=== PATIENT | male | born 1995 ===

== ENCOUNTER 2023-03-16 11:20 | Emergency (ER) | payer OTHER, SELFPAY ==
[2023-03-16 11:47] VITALS: BP 153/64; PULSE 74; RESP 16; TEMP 37.2; O2SAT 100
[2023-03-16 11:50] VITALS: BP 153/64; PULSE 74; RESP 16; TEMP 37.2; O2SAT 100
--- NOTE | 2023-03-16 12:07 | ED.SKABFB ---
HPI - Skin/Abscess/Foreign Bdy General Chief complaint: Skin/Abscess/Foreign Body Stated complaint: skin irritaion Time Seen by Provider: 03/16/23 12:07 Source: patient, RN notes reviewed and old records reviewed Mode of arrival: ambulatory Limitations: no limitations History of Present Illness HPI narrative: 27 year old male presents to [facility] care with complaints of red itchy bites to bilateral inner upper arms which he noted today and 2 small areas o left lower leg. Patient reports that he has been itching for the past few days in those areas and then noted rash areas today. Patient reports that he has just returned from [place] from vacation. Patient is concerned that he has bed bug bites. No one else has similar rash. MD complaint: rash Onset (ago): day(s) (2-3 days itching rash today) Quality: pruritic Treatments prior to arrival: OTC topical medication Related Data Allergies Allergy/AdvReac Type Severity Reaction Status Date / Time No Known Allergies Allergy Verified 03/16/23 12:12 Review of Systems Review of Systems: CONSTITUTIONAL: Denies fever, chills, or sweats. CARDIOVASCULAR: Denies chest pain, palpitations, or edema. RESPIRATORY: Denies cough or dyspnea. SKIN: Reports red bumps to bilateral inner arms and a couple spots left lower leg itchy MUSCULOSKELETAL: Denies joint pain or myalgia. NEUROLOGIC: Denies headache, numbness, or weakness. All systems reviewed & are unremarkable except as noted in HPI and below PMFSH Social History Social History (Updated 03/17/23 @ 09:50 by Connie Marie NP) Smoking status: Never smoker Alcohol intake: unknown Substance use: unknown Gender identity (if verbalized by the patient): Male Comments At time of signature, agree with nursing past medical, surgical, social and family history. There is no relevant family history pertinent to the presenting complaint Exam Narrative: GENERAL: Well-appearing, well-nourished, and in no acute distress. HEAD: Normocephalic, atraumatic. EYES: PERRLA, conjunctivae clear, and EOMI. ENT: Mucous membranes moist. Oropharynx without edema, erythema or lesions. NECK: Supple. No lymphadenopathy CHEST: Clear to auscultation. No respiratory distress. HEART: Regular rate and rhythm. SKIN: Warm, dry.? small red raised areas to bilateral inner upper arms and 2 areas to left lower leg, no drainage, appear as some form of insect bite. NEURO:? Alert and oriented x3. PSYCH: Normal mood and affect Course Course Emergency Course: Patient is aware of diagnosis, understands and agrees to treatment plan.? Anticipatory guidance given.? Patient agrees to follow-up as directed and is aware of reasons to seek care at the emergency department. Portions of this record may have been created with voice recognition software Level of Care: Express Care Visit Vital Signs Vital signs: Vital Signs Temperature 37.2 C 03/16/23 11:47 Pulse Rate 74 03/16/23 11:47 Respiratory Rate 16 03/16/23 11:47 Blood Pressure 153/64 H 03/16/23 11:47 Pulse Oximetry 100 03/16/23 11:47 Temperature 37.2 C 03/16/23 11:50 Pulse Rate 74 03/16/23 11:50 Respiratory Rate 16 03/16/23 11:50 Blood Pressure 153/64 H 03/16/23 11:50 Pulse Oximetry 100 03/16/23 11:50 Reviewed MDM - Skin/Abscess/Foreign Bdy MDM Narrative Medical decision making narrative: Does not appear at this time to be erythema multiforme, bullous, SJS, TEN; no evidence at this time to suggest RMSF, endocarditis or Lyme disease; patient looks well, nontoxic and is tolerating oral intake; no neurologic signs or symptoms; no headache, photophobia or neck pain; afebrile; appropriate for initial outpatient treatment; discussed the importance of follow-up, patient agrees; question, viral exanthema, contact dermatitis, allergic dermatitis, eczema, urticaria. No soft palate or uvula edema, no tongue, lip edema or other mucosal involvement, no resp
== END 2023-03-16 12:25 | disposition home or self-care (01) ==
PROVIDERS: Emergency Provider Registered Nurse
DX: L25.9 Unspecified contact dermatitis, unspecified cause (principal)
CPT/HCPCS: 99213; G0463